=== PATIENT | male | born 1965 | race Caucasian/White ===

== ENCOUNTER 2019-03-15 13:48 | Emergency (ER) | payer MEDICAID ==
[~2019-03-15] VITALS: Ht 180.3 cm; Wt 127.7 kg
[2019-03-15 14:03] VITALS: Ht 180.3 cm; Wt 127.7 kg
[2019-03-15] MEDS ORDERED: COZAAR50 MG PO (14:05)
[2019-03-15] MEDS ORDERED: ZIAC 10-6.25 MG1 TAB PO (14:05)
[2019-03-15] MEDS ORDERED: ASPIRIN81 MG PO (14:05)
[2019-03-15] MEDS ORDERED: GLUCOPHAGE500 MG PO (14:06)
[2019-03-15] MEDS ORDERED: PRAVACHOL20 MG PO (14:07)
[2019-03-15] MEDS ORDERED: ALBUTEROL SULF8.5 GM INH (14:08)
[2019-03-15 14:33] LABS: BASOPHILS 0.1 % (0-2); EOSINOPHILS 0.1 % (0-7); HEMOGLOBIN 16.5 g/dL (13.5-17.5); IMMATURE GRANULOCYTES 0.3 % (0-5); LYMPHOCYTES 8.3 % (15-50); MCH 30.7 pg (26.0-34.0); MCHC 34.4 g/dL (31.0-37.0); MCV 89.2 fL (80.0-100.0); MEAN PLATELET VOLUME 10.1 fL (7.4-10.4); MONOCYTES 3.6 % (2-11); NEUTROPHILS 87.6 % (40-80); PLATELET COUNT 137 10x3/uL (130-400); RBC 5.38 10x6/uL (4.20-6.10); RDW 13.5 % (11.5-14.5); WBC 11.1 10x3/uL (4.8-10.8)
[2019-03-15 14:59] LABS: ALBUMIN 4.3 g/dL (3.4-5.0); ALKALINE PHOSPHATASE 60 U/L (46-116); ALT (SGPT) 75 U/L (10-68); BILIRUBIN - TOTAL 1.54 mg/dL (0.2-1.3); CALC OSMOLALITY 282 mosm/kg (275-300); CALCIUM 9.4 mg/dL (8.5-10.1); CHLORIDE - SERUM 99 mmol/L (98-107); CREATININE - SERUM 1.2 mg/dL (0.6-1.3); GLUCOSE 254 mg/dL (74-106); POTASSIUM - SERUM 4.9 mmol/L (3.5-5.1); PROTEIN - SERUM 8.2 g/dL (6.4-8.2); SODIUM 134 mmol/L (136-145); UREA NITROGEN 28 mg/dL (7-18); eGFR NON AFRICAN AMERICAN 67 mL/min (90-120)
[2019-03-15 15:10] LABS: APPEARANCE CLEAR (CLEAR); BILIRUBIN NEGATIVE (NEGATIVE); COLOR YELLOW (YELLOW); GLUCOSE 1000 mg/dL (NEGATIVE); KETONE LARGE mg/dL (NEGATIVE); NITRITE NEGATIVE (NEGATIVE); PROTEIN TRACE mg/dL (NEGATIVE); UROBILINOGEN NORMAL (NORMAL)
[2019-03-15 15:10] LABS: HELICOBACTER PYLORI IGG POSITIVE (NEGATIVE)
[2019-03-15 15:16] LABS: AMYLASE - SERUM 34 U/L (25-115); CKMB 1.9 U/L (0.0-3.6); CREATINE KINASE 116 UL (21-232); LIPASE 167 U/L (73-393)
[2019-03-15 15:19] LABS: TROPONIN-I < 0.017 ng/mL (0.000-0.060)
[2019-03-15 15:54] LABS: HELICOBACTER PYLORI IGG POSITIVE (NEGATIVE)
[2019-03-15] MEDS ORDERED: CIPRO500 MG PO (17:06)
[2019-03-15] MEDS ORDERED: FLAGYL500 MG PO (17:06)
[2019-03-15] MEDS ORDERED: PROTONIX40 MG PO (17:06)
[2019-03-15] MEDS ORDERED: PHENERGAN25 M1 PO (17:08)
[2019-03-15 19:24] VITALS: BP 140/61
== END 2019-03-15 19:17 | disposition home or self-care (01) ==
LOC: D.ER 13:48
PROVIDERS: Family Medicine
DX: A04.8 Other specified bacterial intestinal infections (principal)

== ENCOUNTER → 2020-02-18 09:48 | Outpatient (CLI) | payer MEDICAID ==
[2019-03-15 14:03] VITALS: BMI 39.2
--- NOTE | ~2020-02-18 | EC ---
PATIENT:SERA TORRES DATE OF SERVICE: 02/18/20 SEX: M MEDICAL RECORD: [id number] DATE OF : [birth year] LOCATION:[facility] AGE OF PATIENT: 54 ADMISSION DATE: 02/18/20 REFERRING PHYSICIAN: INTERPRETING PHYSICIAN: LONI DOSS MD ECHOCARDIOGRAM REPORT ECHO CHARGES 4 ECHO COMPLETE Date: 02/18/20 CLINICAL DIAGNOSIS: CHEST PAIN/HTN ECHOCARDIOGRAPHIC MEASUREMENTS (adult normal given) AC root (d.<3.7cm) 3.9 cm LV Septum d (<1.2 cm> 1.6 cm Valve Excursion 2.0 cm LV Septum (systole) 1.7 cm Left Atria (s.<4.0cm> 3.7 cm LVPW d(<1.2cm) 1.9 cm RV (d.<2.3cm) 3.8 cm LVPW (sytole) 2.0 cm LV diastole(<5.6CM) 4.3 cm MV E-F(>70mm/sec) cm LV systole 2.2 cm LVOT Diameter 2.2 cm MV exc.(>10mm) cm Est.ejection fraction (50-75%) % DOPPLER: LVIT cm/sec A 59.0 cm/sec E 45.0 cm/sec LA cm/sec RVSP 19 mmHg LVOT 81 cm/sec AOP1/2T m/s Asc. Ao 131 cm/sec RVOT 86 cm/sec RA cm/sec PA 103 cm/sec AV Gradient Peak 6.89 mmHg AV Mean 3.61 mmHg AV Area 2.4 cm MV Gradient Peak 2.13 mmHg MV Mean 0.75 mmHg MV Area cm COMMENTS: Return Agent: 2 PARUL JUNE Correctional Sergeant: 3 Dr. Ramirez TAPE# PACS Pericardial Effusion N DATE OF SERVICE: Adequate 2D, color flow imaging, spectral Doppler, and M-Mode LVH is present. LV internal dimension is normal. Wall motion is normal. EF is greater than or equal to 55%. Aortic valve is tricuspid. No evidence of stenosis by Doppler interrogation. Left atrium is normal at 3.7 cm. Mitral valve shows no prolapse. Trace MR. Right-sided chambers are grossly normal. Trace TR. 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
--- NOTE | ~2020-02-18 | ST ---
PATIENT:SERA TORRES MEDICAL RECORD: [id number] SEX: M LOCATION:[facility] ORDER #: ADMISSION DATE: 02/18/20 AGE OF PATIENT: 54 REFERRING PHYSICIAN: INTERPRETING PHYSICIAN: LONI DOSS MD DATE OF SERVICE: 02/18/2020 Procedure: Treadmill stress test. Baseline ECG is normal. Exercised for 10 minutes on Jaime protocol. Maximum heart rate of 136 beats per minute, greater than 85% max predicted, questionable [address] depression in the inferior leads. No symptoms of ischemia. Normal blood pressure response to exercise. No arrhythmias noted. IMPRESSION: Indeterminate treadmill stress test. Consider further imaging if clinically indicated. 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
[~2020-02-18 09:48] MED LIST: ALBUTEROL SULF8.5 GM INH; ASPIRIN81 MG PO; CIPRO500 MG PO; COZAAR50 MG PO; FLAGYL500 MG PO; GLUCOPHAGE500 MG PO; PHENERGAN25 M1 PO; PRAVACHOL20 MG PO; PROTONIX40 MG PO; ZIAC 10-6.25 MG1 TAB PO
== END | disposition home or self-care (01) ==
LOC: D.HCCECHO 09:48
PROVIDERS: ATTEND Internal Medicine Interventional Cardiology
DX: R07.9 Chest pain, unspecified (principal)